=== PATIENT | female | born 2000 | race Caucasian/White ===

== ENCOUNTER → 2019-01-13 | Outpatient (CLI) | payer OTHER ==
--- NOTE | 2019-01-15 13:15 | 24HR ---
[place] [address] [employer] REPORT Name: JOJO CHOU Room: [facility]#: [id number] Admission: 01/13/19 Attend Phys: Nataliia Prakash Discharge: Date of : 89 Date of Service: 01/15/1913 Report #: [id number] THIS REPORT FOR: //name// [facility] Test Date: 2019-01-15 Test Time: 09:13:09 Pat Name: JOOJ CHOU Department: Room: Gender: F [employer] Supervisor: : 2000 Requested By: Nataliia Prakash Order Number: [id number] Anay MD: Ulises Bueno Interpretive Statements #1 sinus rhythm with sinus arrhythmia rates varying from 45-138 with an average of 69 #2 rare isolated PACs are noted #3 there is no ventricular ectopy noted #4 there are no significant pauses noted #5 patient noted lightheadedness dizziness and palpitations, but there were no significant associated Arrhythmias. Electronically Signed On 01-15-2019 13:15:05 CDT by Ulises Bueno [email or web address] <ELECTRONICALLY SIGNED> By: Ulises Bueno MD, LOCATED WITHIN [facility] 01/15/19 1315 Ulises Bueno MD, [facility]ATED [facility] /EPI
== END ==
LOC: M.CRD 11:00
DX: I49.1 Atrial premature depolarization (principal); R00.2 Palpitations; R00.0 Tachycardia, unspecified; R06.02 Shortness of breath; R42 Dizziness and giddiness